=== PATIENT | male | born 1980 | race Two or more races ===

== ENCOUNTER 2019-07-23 09:07 | Emergency (ER) | payer MEDICAID ==
[~2019-07-23] VITALS: Ht 167.6 cm; Wt 67.1 kg
--- NOTE | 2019-07-23 09:15 | NUR ---
JUANCHO NATARAJAN 41 From [facility], "WITNESSED TONIC/CLONIC SEIZURE BY STAFF, BS 99". 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 PATIENT STATES THE REASON HE'S IN [facility] "attacks of stiffness of leg and chest, they stopped giving me medication for seizure". KEPT WARM, SAFE AND COMFORTABLE. CALL LIGHT WITHIN REACH.
--- NOTE | 2019-07-23 09:18 | NUR ---
DR LOMELI AT BEDSIDE
[2019-07-23] MEDS ORDERED: LEVETIRACETAM (500MG) 500 MG in IV NS 0.9% 100 ML IV ONE (09:30)
[2019-07-23] MEDS ORDERED: IV NS 0.9% 1,000 ML BAG IV ONE (09:30)
[2019-07-23] MEDS ORDERED: IBUP-1955 PO (09:41)
[2019-07-23] MEDS ORDERED: LEVE500T20 PO (09:41)
--- NOTE | 2019-07-23 09:42 | NUR ---
PATIENT REFUSES BLOOD DRAW, MADE AWARE
--- NOTE | 2019-07-23 13:52 | NUR ---
REPORT GIVEN TO [facility]
--- NOTE | 2019-07-23 13:57 | NUR ---
CALLED [facility]. ETA 1730.
--- NOTE | 2019-07-23 14:07 | NUR ---
CALLED JUANITO PEARSON 30-45 MINUTES. TRIP # [id number]
--- NOTE | 2019-07-23 14:48 | NUR ---
IV removed. Catheter intact and site benign. Pressure and 4x4 applied to site. No bleeding noted. Patient discharged to [facility] in stable condition. Written and verbal after care instructions given to EMT, verbalized understanding. Patient will be brought back to [facility].
[2019-07-23 14:49] VITALS: BP 106/71
== END 2019-07-23 14:49 ==
LOC: ER 09:09
DX: G40.909 Epilepsy, unspecified, not intractable, without status epilepticus (principal); Z79.899 Other long term (current) drug therapy
CPT/HCPCS: 70450; 71045; 96365; 99285; J1953; J7030 ×2